=== PATIENT | female | born 1990 | race Caucasian/White ===

== ENCOUNTER 2024-08-21 07:52 | Inpatient (IN) | payer BC, SELFPAY ==
[2024-08-21 08:27] VITALS: BP 153/105; BMI 30.3
[2024-08-21 09:02] LABS: Cord ABG Comment CORD BLOOD
[2024-08-21] MEDS: XYLOCAINE-MPF 1% VIAL 10 ML INFIL (09:02)
[2024-08-21 09:03] LABS: B.E. Cord ABG -11.1 mMOL/L; HCO3 Cord ABG 15.4 mmol/L; O2 Saturation % Cord ABG 64.2 %; PCO2 Cord ABG 36 mmHg; PO2 Cord ABG 27 mmHg; pH Cord ABG 7.24
[2024-08-21] MEDS: MORPHINE SULFATE 2 MG IV (09:04)
[2024-08-21 09:07] LABS: % Basophils 0.3 % (0-2); % Eosinophils 0.3 % (0-6); % Immature Granulocytes 0.6 % (0-0.5); % Lymphocytes 15.2 % (20.5-51.1); % Neutrophils 77.6 % (42.2-75.2); Absolute Basophils 0.1 10^3/uL (0-0.2); Absolute Eosinophils 0.1 10^3/uL (0-0.7); Absolute Immature Granulocytes 0.1 10^3/uL (0-0.05); Absolute Lymphocytes 2.8 10^3/uL (1.2-3.4); Absolute Monocytes 1.1 10^3/uL (0.1-0.6); Hematocrit 37.9 % (37.0-47.0); Hemoglobin 13.3 g/dL (12.0-16.0); Mean Corp Hgb Conc. 35.1 g/dL (33.0-37.0); Mean Corpuscular Hgb 31.9 pg (27.0-31.0); Mean Corpuscular Volume 90.9 fL (81.0-99.0); Mean Platelet Volume 11.8 fL (7.4-10.4); Nucleated Red Blood Cells % 0 %; Platelet Count 260 10^3/uL (130-400); Red Blood Cell Count 4.17 10^6/uL (4.20-5.40); Red Cell Dist. Width 12.7 % (11.5-14.5); White Blood Cell Count 18.1 10^3/uL (4.8-10.8)
[2024-08-21 09:09] LABS: B.E. Cord ABG -10.9 mMOL/L; HCO3 Cord ABG 15.9 mmol/L; O2 Saturation % Cord ABG 66.9 %; PCO2 Cord ABG 38 mmHg; PO2 Cord ABG 29 mmHg; pH Cord ABG 7.23
[2024-08-21] MEDS: HEMABATE 250 MCG IM ×2 (09:30→09:31)
[2024-08-21] MEDS: TYLENOL 650 MG PO ×3 (10:01→20:40)
[2024-08-21] MEDS: SENOKOT-S 1 TABLET PO (20:40)
[2024-08-22] MEDS: TYLENOL 650 MG PO ×2 (01:27→08:43)
[2024-08-22 05:27] LABS: Hemoglobin 10.6 g/dL (12.0-16.0)
[2024-08-22] MEDS: SENOKOT-S 1 TABLET PO (08:43)
[2024-08-22] MEDS: MOTRIN 600 MG PO ×2 (11:46→21:07)
[2024-08-23] MEDS: FEOSOL 325 MG PO (08:53)
[2024-08-23] MEDS: MOTRIN 600 MG PO (08:53)
[2024-08-23] MEDS: SENOKOT-S 1 TABLET PO (08:54)
[2024-08-23 11:51] LABS: Syphilis/T. pallidum Ab Reflex Negative (Negative)
== END 2024-08-23 11:01 | disposition home or self-care (01) | DRG 807 ==
LOC: LDRP 07:52
PROVIDERS: Obstetrics & Gynecology; ADMITTING PHYSICIAN Obstetrics & Gynecology; FAMILY PHYSICIAN Family Medicine
PROC: 0KQM0ZZ Repair Perineum Muscle, Open Approach (ICD-10-PCS; 2024-08-21)
PROC: 10D07Z6 Extraction of Products of Conception, Vacuum, Via Natural or Artificial Opening (ICD-10-PCS; 2024-08-21)
PROC: 10907ZC Drainage of Amniotic Fluid, Therapeutic from Products of Conception, Via Natural or Artificial Opening (ICD-10-PCS; 2024-08-21)
DX: O48.0 Post-term pregnancy (principal); Z37.0 Single live birth; O69.81X0 Labor and delivery complicated by cord around neck, without compression, not applicable or unspecified; O70.1 Second degree perineal laceration during delivery; O77.0 Labor and delivery complicated by meconium in amniotic fluid; Z3A.40 40 weeks gestation of pregnancy; Z88.0 Allergy status to penicillin; Z88.2 Allergy status to sulfonamides
CPT/HCPCS: 88307; 36415; 82803; 85014; 85018; 85025; 86780; 86850; 86900; 86901